=== PATIENT | male | born 1975 | race Caucasian/White ===

== ENCOUNTER 2017-08-16 10:24 | Emergency (ER) | payer OTHER ==
[~2017-08-16] VITALS: Ht 185.4 cm; Wt 110.9 kg
[2017-08-16 10:48] LABS: HEMATOCRIT 45.6 % (38.0-50.0); HEMOGLOBIN 15.8 G/DL (12.5-16.6); MCH 30.4 PG (29.0-34.0); MCHC 34.6 G/DL (30.0-36.0); MCV 87.7 FL (86-99); PLATELET COUNT 231 K/uL (156-360); RBC DIS.WIDTH-CV 12.1 % (11.8-14.6); RBC DIS.WIDTH-SD 38.9 % (39-53); WHITE BLOOD COUNT 8.4 K/uL (4.1-10.2)
[2017-08-16 11:03] LABS: CHLORIDE 108 mEq/L (99-109)
[2017-08-16 11:04] LABS: POTASSIUM 4.1 mEq/L (3.7-5.4); SODIUM 140 mEq/L (136-147)
[2017-08-16 11:05] LABS: GLUCOSE 117 mg/dL (70-99)
[2017-08-16 11:09] LABS: CREATININE 1.2 mg/dL (0.6-1.3)
[2017-08-16 11:10] LABS: UREA NITROGEN (BUN) 11 mg/dL (9-23)
[2017-08-16 11:13] LABS: GFR ESTIMATE (CALCULATED) > 59 mL/min/ (58.99-99999)
[2017-08-16 11:15] LABS: TROP-I INTERPRETATION NEGATIVE; TROPONIN-I < 0.01 ng/mL (0.0-0.30)
[2017-08-16 13:28] VITALS: BP 120/72
== END 2017-08-16 13:32 | disposition home or self-care (01) ==
LOC: EME 10:24
DX: R07.9 Chest pain, unspecified (principal); R00.1 Bradycardia, unspecified; Z82.49 Family history of ischemic heart disease and other diseases of the circulatory system
CPT/HCPCS: 71046; 80048; 84484; 85027; 93005; 99281; 99284